=== PATIENT | male | born 1975 | race Caucasian/White ===

== ENCOUNTER 2017-11-15 09:14 | Emergency (ER) | payer BC ==
[~2017-11-15] VITALS: Ht 182.9 cm; Wt 162.4 kg
[~2017-11-15 09:14] MED LIST: ADULT LOW DOSE81 MG PO; COREG PO; FISHOIL; FLEXERIL PO; FLOMAX0.4 MG PO; LIPITOR 20 MG T20 M1; LISINOPRIL5 MG PO; NIACIN 100MG T100 M1; NOHOMEMEDICATIONS; PERCOCET 7.5-31 EACH PO; ULTRAM 50MG TAB50 MG PO; ZOCOR40 MG PO; ZOFRAN ODT4 MG PO; ZPAK PO
[2017-11-15] MEDS ORDERED: NORVASC5 MG PO (09:23)
[2017-11-15] MEDS ORDERED: LOTENSIN20 MG PO (09:24)
[2017-11-15 09:43] LABS: ABSOLUTE BASOPHILS 0.1 thou/uL (0.0-0.2); ABSOLUTE EOSINOPHILS 0.2 thou/uL (0.0-0.7); ABSOLUTE LYMPHOCYTES 2.2 thou/uL (0.8-5.3); ABSOLUTE MONOCYTES 0.5 thou/uL (0.0-1.2); ABSOLUTE NEUTROPHILS 5.4 thou/uL (1.6-8.1); BASOPHILS 0.7 %; EOSINOPHILS 1.9 %; HEMATOCRIT 48.3 % (42.0-52.0); HEMOGLOBIN 16.5 gm/dL (14.0-18.0); LYMPHOCYTES 26.2 %; MCH 30.5 pg (26.0-34.0); MCHC 34.2 g/dL (28.0-37.0); MCV 89.3 fL (80.0-100.0); MONOCYTES 5.9 %; MPV 7.6 fl. (7.2-11.1); NUCLEATED RBCS 0 /100WBC; PLATELET COUNT* 200 thou/uL (150-400); POLYS 65.3 %; RBC 5.41 mil/uL (4.50-6.00); RDW-CV 13.5 % (10.5-14.5); WBC 8.2 thou/uL (4.0-11.0)
[2017-11-15 09:53] LABS: ANION GAP 9 mmol/L (7-16); BUN 13 mg/dL (7-18); CALCIUM 9.2 mg/dL (8.5-10.1); CHLORIDE 105 mmol/L (98-107); CO2 27 mmol/L (21-32); GLUCOSE 103 mg/dL (70-99); POTASSIUM 4.5 mmol/L (3.5-5.1); SODIUM 141 mmol/L (136-145)
[2017-11-15 10:04] LABS: ALKALINE PHOSPHATASE 86 U/L (46-116); LIPASE 117 U/L (73-393); NT-PRO BRAIN NAT PEPTIDE 6 pg/mL (<300); SGOT 28 U/L (15-37); SGPT 46 U/L (30-65); TOTAL BILIRUBIN 0.8 mg/dL (<0.1-1.0); TROPONIN-I LEVEL <0.06 ng/mL (<0.06)
[2017-11-15 13:04] VITALS: BP 105/67
--- NOTE | 2017-11-15 16:35 | EKG ---
[place] [address] ELECTROCARDIOGRAM REPORT Name: MADI RAMSAY [id number] Admission: 11/15/17 Attend Phys: Discharge: 11/15/17 Date of : 77 Report #: [id number] THIS REPORT FOR: //name// [facility] ED Test Date: 2017-11-15 Test Time: 09:19:00 Pat Name: MADI RAMSAY Department: Room: Gender: M Community Engagement Specialist: ADITHYA : 1975 Requested By: Anthony Figueroa Order Number: [id number] MD: Humphrey Kimbrough Measurements Intervals [place] Rate: 92 P: MS: QRS: 3 QRSD: 100 T: 33 QT: 369 QTc: 457 Interpretive Statements Atrial fibrillation Baseline wander in lead(s) V1,V3,V4 Electronically Signed On 11-15-2017 16:35:36 CDT by Humphrey Kimbrough [email or web address] <ELECTRONICALLY SIGNED> By: Humphrey Kimbrough MD, [facility] 11/15/17 1635 0919 0919 Humphrey Kimbrough MD, FACC /EPI
--- NOTE | 2017-11-15 16:39 | EKG ---
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: MULU : 1975 Requested By: Anthony Figueroa Order Number: [id number] MD: Humphrey Kimbrough Measurements Intervals [place] Rate: 70 P: 41 IA: 172 QRS: 18 QRSD: 104 T: 42 QT: 388 QTc: 419 Interpretive Statements Sinus rhythm Probable left atrial enlargement Compared to ECG 05/16/2011 17:55:00 No significant changes Electronically Signed On 11-15-2017 16:39:08 CDT by Humphrey Kimbrough [email or web address] <ELECTRONICALLY SIGNED> By: Humphrey Kimbrough MD, [facility] 11/15/17 1639 1131 1131 Humphrey Kimbrough MD, FACC /EPI
== END 2017-11-15 13:04 | disposition home or self-care (01) ==
LOC: M.ERS 09:14
PROVIDERS: Emergency Medicine Emergency Medical Services
DX: R07.9 Chest pain, unspecified (principal); E78.5 Hyperlipidemia, unspecified; I10 Essential (primary) hypertension; J45.909 Unspecified asthma, uncomplicated; Z90.89 Acquired absence of other organs; Z86.711 Personal history of pulmonary embolism

== ENCOUNTER → 2019-07-30 | Outpatient (CLI) | payer BC ==
[~2019-07-30] MED LIST changes: +LOTENSIN20 MG PO; +NORVASC5 MG PO
== END ==
LOC: M.LAB 14:35
DX: R00.2 Palpitations (principal)

== ENCOUNTER → 2019-08-25 | Outpatient (CLI) | payer BC ==
--- NOTE | 2019-08-25 16:10 | 2DMMODE ---
[place] [address] 2 D/M-MODE ECHOCARDIOGRAM Name: MADI RAMSAY Room: [facility]#: [id number] Admission: 08/25/19 Attend Phys: Reymundo Caputo, Discharge: Date of : 77 Date of Service: 08/25/19 1609 Report #: [id number] THIS REPORT FOR: cc: Christiano Sweeney MD, Kevin R. MD Blick, David R. MD [facility] ~ THIS REPORT FOR: //name// APPROVED REPORT Study performed: 08/25/2019 07:58:50 EXAM: Comprehensive 2D, Doppler, and color-flow Echocardiogram Patient Location: Out-Patient BSA: 2.82 HR: 82 bpm BP: 140/90 mmHg Other Information Study Quality: Fair Indications Chest Pain 2D Dimensions IVSd: 11.63 (7-11mm) LVOT Diam: 21.97 (18-24mm) LVDd: 45.22 mm PWd: 12.72 (7-11mm) Ascending Ao: 27.86 (22-36mm) LVDs: 30.14 (25-40mm) Aortic Root: 31.64 mm Volumes Left Atrial Volume (Systole) LA ESV Index: 15.60 mL/m2 Aortic Valve AoV Peak Kane.: 1.27 m/s AO Peak Gr.: 6.46 mmHg LVOT Max P.11 mmHg AO Mean Gr.: 3.66 mmHg LVOT Mean P.91 mmHg LVOT Max V: 1.24 m/s AO V2 VTI: 24.30 cm LVOT Mean V: 0.78 m/s AUDREY (VTI): 3.99 cm2 LVOT V1 VTI: 25.57 [place] [address] 2 D/M-MODE ECHOCARDIOGRAM Name: MADI RAMSAY [facility] [id number] Admission: 08/25/19 Attend Phys: Reymundo Caputo, Discharge: Date of : 77 Date of Service: 08/25/19 1609 Report #: [id number] Mitral Valve E/A Ratio: 1.11 MV Decel. Time: 174.04 ms MV E Max Kane.: 0.82 m/s MV PHT: 50.47 ms MVA (PHT): 4.36 cm2 TDI E/Lateral E': 6.83 E/Medial E': 5.47 Medial E' Kane.: 0.15 m/s Lateral E' Kane.: 0.12 m/s Pulmonary Valve PV Peak Kane.: 0.95 m/s PV Peak Gr.: 3.64 mmHg Left Ventricle The left ventricle is normal size. There is normal LV segmental wall motion. Mild concentric left ventricular hypertrophy. Left ventricular systolic function is normal. The left ventricular ejection fraction is within the normal range. LVEF is 55-60%. The left ventricular diastolic function is normal. Right Ventricle The right ventricle is normal size. The right ventricular systolic function is normal. Atria The left atrium size is normal. The right atrium size is normal. Aortic Valve The aortic valve is normal in structure. No aortic regurgitation is present. There is no aortic valvular stenosis. Mitral Valve The mitral valve is normal in structure. There is no mitral valve regurgitation noted. No evidence of mitral valve stenosis. Tricuspid Valve The tricuspid valve is normal in structure. There is no tricuspid valve regurgitation noted. Pulmonic Valve Pulmonic valve is not well visualized. There is no pulmonic [place] [address] 2 D/M-MODE ECHOCARDIOGRAM Name: MADI RAMSAY Room: [facility]#: [id number] Admission: 08/25/19 Attend Phys: Reymundo Caputo, Discharge: Date of : 77 Date of Service: 08/25/19 1609 Report #: [id number] Great Vessels The aortic root is normal in size. IVC is normal in size and collapses >50% with inspiration. Pericardium There is no pericardial effusion. <Conclusion> Mild concentric left ventricular hypertrophy. LVEF is 55-60%. <ELECTRONICALLY SIGNED> By: Axel Solares MD, FACC 08/25/19 1609 1609 1609 Axel Solares MD, FAC /INF
== END ==
LOC: M.CRD 07:42
DX: I51.7 Cardiomegaly (principal)